=== PATIENT | female | born 1955 | race Caucasian/White ===

== ENCOUNTER 2017-10-15 12:33 | Emergency (ER) | payer OTHER ==
[~2017-10-15] VITALS: Ht 157.5 cm; Wt 72.6 kg
[2017-10-15 12:41] VITALS: Ht 157.5 cm; Wt 72.6 kg
[2017-10-15 15:51] VITALS: BP 153/91
== END 2017-10-15 15:51 | disposition home or self-care (01) ==
LOC: ED 12:33
DX: M25.462 Effusion, left knee (principal); I10 Essential (primary) hypertension; E11.9 Type 2 diabetes mellitus without complications; I25.2 Old myocardial infarction; G62.9 Polyneuropathy, unspecified; Z99.2 Dependence on renal dialysis
CPT/HCPCS: J3010; Q0092